=== PATIENT | male | born 1955 | race Caucasian/White ===

== ENCOUNTER → 2024-06-13 | Outpatient (CLI) | payer MEDICARE, BC, SELFPAY ==
--- NOTE | 2024-06-13 11:30 | XR_ITS ---
Examination: Ultrasound abdominal aorta TECHNIQUE: Grayscale sonographic images abdominal aorta Exam date and time: June 13, 2024 0942 hours INDICATIONS: Smoking history 50 years FINDINGS: Transverse dimension proximal aorta 2.0 x 2.1 cm, mid aorta 2.1 x 1.6 cm, distal aorta 1.8 x 1.4 cm, right iliac artery 1.2 x 1.0 cm left iliac artery 1.1 x 1.1 cm IMPRESSION: Negative for abdominal aortic aneurysm
== END | disposition home or self-care (01) ==
PROVIDERS: PCP Internal Medicine; Referring Provider Internal Medicine; Visit Provider Internal Medicine
DX: Z87.891 Personal history of nicotine dependence (principal)
CPT/HCPCS: 76770

== ENCOUNTER → 2024-06-16 | Outpatient (CLI) | payer MEDICARE, BC, SELFPAY ==
--- NOTE | 2024-06-16 15:30 | XR_ITS ---
Examination: CT chest, without intravenous contrast. Sagittal and coronal 2-D reconstructions. Exam date and time: June 16, 2024 1536 hours INDICATIONS: Smoking history 20 years HEENT dependence CTDI:vol (mGy) 11.9 DLP: (mGycm) 481 Technique: Multiple 3.0 mm axial sections of the chest to been obtained. Bone and lung density settings are obtained. Sagittal and coronal 2-D reconstructions have been obtained. Low dose protocols were performed. One or more of the following dose reduction techniques were used; automated exposure control, adjustment of the mA and/or KV according to patient size, use of iterative reconstruction technique. Findings: AP dimension ascending thoracic aorta 4.3 cm Pulmonary artery segments are not enlarged No paratracheal tracheobronchial or bronchopulmonary adenopathy 2 mm pulmonary nodule left upper lobe image 84 3 mm pulmonary nodule right upper lobe image 101 2 mm pulmonary nodule left upper lobe image 104 2 mm pulmonary nodule left upper lobe image 124 2 mm right lower lobe image 261 No pneumonia or pulmonary edema 12 mm low-density lesion upper right lobe liver image 148 Hypodense mass body the pancreas 12 mm IMPRESSION: Aneurysmal dilatation ascending thoracic aorta Multiple noncalcified pulmonary nodules, with this study as baseline recommend 6 month follow-up CT chest without contrast 12 mm low-density liver lesion Hypodense mass body of the pancreas 12 mm, recommend MRI abdomen pancreas follow-up pre and postcontrast
== END | disposition home or self-care (01) ==
LOC: CCTX 15:13
PROVIDERS: PCP Internal Medicine; Referring Provider Internal Medicine; Visit Provider Internal Medicine
DX: I71.21 Aneurysm of the ascending aorta, without rupture (principal); R91.8 Other nonspecific abnormal finding of lung field; K76.9 Liver disease, unspecified; K86.89 Other specified diseases of pancreas; Z87.891 Personal history of nicotine dependence
CPT/HCPCS: 71250

== ENCOUNTER → 2024-08-20 | Outpatient (CLI) | payer MEDICARE, BC, SELFPAY ==
--- NOTE | 2024-08-20 | XR_ITS ---
Examination: MRI abdomen with intravenous contrast. MRI abdomen without intravenous contrast. Date and time of exam: August 20, 2024 1258 hrs. Indications: 12 mm low density liver lesion, hypodense mass body of the pancreas [address] examination June 16, 2024 Technique: Multiple axial, sagittal and coronal sections of the abdomen obtained. Transverse images, TR 6020, TE 107. T1 weighted transverse images, TR 582, TE 9.5. T2-weighted sagittal images, TR 4000, TE 105. T2-weighted sagittal images, TR 4000, TE 5. Coronal images, TR 4210, TE 107. Axial and coronal images are obtained post 20 cc intravenous injection, gadolinium. Findings: 12 mm lesion upper right lobe liver which shows diffuse enhancement on the postcontrast images Gallbladder is not distended Common bile duct is not enlarged Nonenhancing hypodense mass body of the pancreas, 12 mm Aorta normal size No hydronephrosis No ascites or abdominal lymphadenopathy Impression: 12 mm enhancing lesion upper right lobe liver, recommend hepatic sonography to further characterize this lesion Nonenhancing probable cyst involving the body the pancreas, 12 mm, recommend 3 month follow-up pancreatic sonography
== END | disposition home or self-care (01) ==
LOC: SMRI 12:24
PROVIDERS: PCP Nurse Practitioner Family; Referring Provider Nurse Practitioner Family; Visit Provider Nurse Practitioner Family
DX: K76.89 Other specified diseases of liver (principal)
CPT/HCPCS: 74183; A9579

== ENCOUNTER → 2024-10-10 | Outpatient (CLI) | payer MEDICARE, BC, SELFPAY ==
--- NOTE | 2024-10-10 13:00 | XR_ITS ---
Examination: Abdomen sonogram, complete Date and time of exam: October 10, 2024 1335 hours INDICATIONS: MRI abdomen August 20, 2023 12 mm lesion upper right lobe of the liver, probable 12 mm cyst in the pancreas. Technique: Multiple real-time grayscale transabdominal sonographic images of the abdomen have been obtained. Findings: Normal gallbladder Normal common bile duct 0.3 cm Pancreatic head 2.7 cm 15 x 17 mm cyst body the pancreas Aorta not enlarged Liver 19.3 cm fatty infiltration no focal liver lesions Normal hepatopedal portal venous flow Patent IVC Right kidney 11.8 cm cortex 1.7 cm Minimal hydronephrosis Left kidney 12.2 cm cortex 1.9 cm Minimal hydronephrosis Upper pole left renal cyst 21 mm Lower pole left renal calculus 8mm Moderate bilateral renal parenchymal scar formation Spleen 11 cm IMPRESSION: Normal gallbladder 15 x 17 x 15 mm cyst body the pancreas No focal liver lesion 8 mm left renal calculus
== END | disposition home or self-care (01) ==
PROVIDERS: PCP Nurse Practitioner Family; Referring Provider Nurse Practitioner Family; Visit Provider Nurse Practitioner Family
DX: N20.0 Calculus of kidney (principal); K86.2 Cyst of pancreas
CPT/HCPCS: 76700

== ENCOUNTER → 2024-11-04 | Outpatient (CLI) | payer MEDICARE, BC, SELFPAY ==
[2024-11-04 08:46] LABS: Basophils % (Auto) 1 % (0-2.5); Eosinophils # (Auto) 0.2 Thou/mm3 (0.0-0.5); Eosinophils % (Auto) 3 % (0-10); Hematocrit 44.3 % (41.0-53.0); Hemoglobin 15.3 g/dL (13.5-16.0); Immature Granulocytes % (Auto) 0 % (0-0); Immature Granulocytes Auto 0.02 Thou/mm3 (0.00-0.00); Lymphocytes % (Auto) 26 % (10-50); Mean Corpuscular HGB Conc 34.5 g/dl (31.0-37.0); Mean Corpuscular Hemoglobin 31.9 pg (25.0-35.0); Mean Corpuscular Volume 93 fL (80-100); Monocytes # (Auto) 0.8 Thou/mm3 (0.0-0.8); Monocytes % (Auto) 10 % (0-12); Neutrophils # (Auto) 4.5 Thou/mm3 (1.8-7.7); Neutrophils % (Auto) 60 % (37-80); Nucleated Red Blood Cell % 0 /100 WBC (0); Platelet Count 193 Thou/mm3 (140-440); RDW Standard Deviation 42.8 fL (35.1-43.9); Red Blood Count 4.79 Miln/mm3 (4.50-5.90); White Blood Count 7.5 Thou/mm3 (3.8-10.6)
[2024-11-04 09:00] LABS: Glucose Estimated Average 114 mg/dL (80-131); Hemoglobin A1C 5.6 % Hgb (4.8-6.0)
[2024-11-04 09:23] LABS: Alanine Aminotransferase 15 U/L (10-49); Albumin, Serum 4.2 gm/dL (3.4-4.8); Albumin/Globulin Ratio 1.6 (1.2-2.2); Alkaline Phosphatase 106 U/L (46-116); Anion Gap 5 (7-16); Aspartate Amino Transferase 19 U/L (0-34); BUN/Creatinine Ratio 18 Ratio (12-20); Bilirubin,Total 0.8 mg/dL (0.3-1.2); Blood Urea Nitrogen 18 mg/dL (9-23); Calcium 8.9 mg/dL (8.3-10.6); Calcium (Corrected) 8.9 mg/dL (8.5-10.1); Carbon Dioxide 30.7 mMol/L (20.0-31.0); Cardiac Risk Estimate 4.5 RATIO (4.0-6.7); Chloride 108 mMol/L (98-107); Cholesterol 203 mg/dL (132-200); Globulin 2.6 gm/dL (2.3-3.5); Glucose 108 mg/dL (74-106); HDL Cholesterol 45 mg/dL (40-60); LDL Cholesterol,Calculated 137 mg/dL (0-130); Osmolality,Calculated 289 (275-295); Sodium 144 mMol/L (136-145); Thyroid Stimulating Hormone 1.56 uIU/mL (0.55-4.78); Total Protein 6.8 gm/dL (5.7-8.2); Triglycerides 104 mg/dL (30-150); eGFR > 60 See Note
[2024-11-04 09:29] LABS: Collection Type, Urine Clean Catch; Squamous Epithelial Cell,Urine 0 /hpf (0-5)
[2024-11-04 10:08] LABS: Amorphous Crystals,Urine Present (Absent); Bacteria,Urine 4+; Bilirubin,Urine Negative (Negative); Blood,Urine Negative (Negative); Clarity,Urine Clear (Clear/Hazy); Color,Urine Yellow (Lt Yel-Yel); Glucose, Urine Negative (Negative); Hyaline Casts,Urine < 1 /hpf (0-1); Ketones,Urine Negative (Negative); Leukocyte Esterase,Urine Positive (Negative); Nitrite,Urine Negative (Negative); Protein,Urine Negative (Neg - Trace); RBC,Urine 15 /hpf (0-3); Specific Gravity,Urine 1.022 (1.001-1.035); Urobilinogen,Urine Negative mg/dL (0.0-1.0); WBC,Urine 122 /hpf (0-5)
== END | disposition home or self-care (01) ==
LOC: COPL 07:47
PROVIDERS: PCP Family Medicine; Referring Provider Family Medicine; Visit Provider Family Medicine
DX: Z00.00 Encounter for general adult medical examination without abnormal findings (principal); I10 Essential (primary) hypertension
CPT/HCPCS: 36415; 80053; 80061; 81001; 83036; 84443; 85025

== ENCOUNTER → 2024-11-11 | Outpatient (CLI) | payer MEDICARE, BC, SELFPAY ==
--- NOTE | 2024-11-11 12:40 | XR_ITS ---
Examination: Bone densitometry Date and time of exam:November 11, 2024 1250 hours INDICATIONS: 69-year-old male with diagnosis age related osteoporosis, family history, sister osteoporosis, personal history bladder cancer Technique: Lumbar spine and hip total bone mineralization values of an calculated. Peak reference and age match control results have been displayed. Findings: Lumbar spine total bone mineralization is0.989 gm/cm2. This is 0.9 standard deviations below peak reference. This is 0.0 standard deviations above age-matched controls. Hip total bone mineralization is 0.850 gm/cm2 This is 1.2 standard deviations below peak reference. This is 0.5 standard deviations below age-matched controls Impression: There is normal mineralization based on lumbar spine measurements. There is osteoporosis based on hip measurements
== END | disposition home or self-care (01) ==
LOC: CDIM 12:22
PROVIDERS: PCP Family Medicine; Referring Provider Family Medicine; Visit Provider Family Medicine
DX: M81.0 Age-related osteoporosis without current pathological fracture (principal)
CPT/HCPCS: 77080